=== PATIENT | female | born 1985 | race Caucasian/White ===

== ENCOUNTER 2024-02-16 18:34 | Emergency (ER) | payer BC, SELFPAY ==
[2024-02-16 18:43] VITALS: BP 142/81
--- NOTE | 2024-02-16 21:21 | ED.GENMED ---
History of Present Illness
General
Chief Complaint: Vascular Symptoms
Source: patient
Exam Limitations: none
Time Seen by Provider: 02/16/24 21:02
History of Present Illness
History of Present Illness:
38-year-old female presents complaining of right arm discomfort and swelling with associated numbness into the fingertips. Seen by family doctor earlier today and sent in for DVT rule out. She denies chest pain or shortness of breath. No known
injury. No other complaints at this time
Phy Exam
Physical Exam
Physical Exam:
General: Well-appearing female no acute respiratory distress
HEENT: Normocephalic atraumatic
Heart: Regular rate and rhythm no murmurs lungs: Clear no wheeze musculoskeletal exam: The right medial elbow is tender to the touch with mild soft tissue swelling. She has increased pain with resisted wrist extension. The neck has good range of
motion. She has good range of motion to the right shoulder.
Neurologic: Good sensation right hand. Subtle weakness noted upon ulnar strength testing with finger abduction. She has a mildly positive Tinel's of the cubital tunnel.
Vascular: 2+ radial pulse right wrist no edema
Course
Orders/Labs/Results
Orders:
Orders
02/16/24 18:46
Periph Venous Upr Ext Right US [US Periph Venous UPPER Ext RT] Urgent
Comment:
Reason For Exam: r/o dvt
Vital Signs
Initial and Last Documented VS:
Initial Vital Signs
Temp Pulse Resp BP Pulse Ox
99.0 F 94 19 142/81 98
02/16/24 18:43 02/16/24 18:43 02/16/24 18:43 02/16/24 18:43 02/16/24 18:43
Last Documented Vital Signs
Temp Pulse Resp BP Pulse Ox
99.0 F 94 19 142/81 98
02/16/24 18:43 02/16/24 18:43 02/16/24 18:43 02/16/24 18:43 02/16/24 18:43
MDM/Problems Addressed
Differential Diagnosis Includes:
Right arm pain. Consider tendinitis versus radiculopathy versus cubital tunnel versus DVT. Patient sent in by family doctor to evaluate for DVT. Ultrasound was performed of the right upper extremity which was negative for DVT. Patient reassured.
Recommended ibuprofen or anti-inflammatories stable for discharge with follow-up
*Critical Care Note
Total Time (30-74mins, 75-104mins- exclusive of procedures): Not Applicable
ED Attending Note
-
Portions of this chart may have been created with voice recognition software.� Occasional wrong word or��sound alike� substitutions may have occurred due to the inherent limitations of voice recognition software.
Discharge Plan
Departure
Patient Disposition: Home (Routine Discharge)
Date of Disposition: 02/16/24
Time of Disposition: 21:33
Patient with high blood pressure during this ER visit?: No
Discharge Problem:
Arm pain
Instructions: Radiculopathy (DC)
Activity Restrictions/Additional Instructions:
Use ibuprofen as needed for pain. Return for worsening symptoms otherwise follow-up with family doctor
Interventions
Interventions:
*Risk Screen - Suicide Last Done: 02/16/24 18:39
*General Assessment Last Done: 02/16/24 18:39
*Neglect/Abuse Screening Last Done: 02/16/24 18:39
*ED COVID-19 Vaccine History Last Done: 02/16/24 18:39
Discharge Date and Time
Print Language: GAMBIAN
== END 2024-02-16 21:37 | disposition home or self-care (01) ==
LOC: EMR 18:34
PROVIDERS: EMERGENCY PHYSICIAN Emergency Medicine; FAMILY PHYSICIAN Family Medicine
DX: M79.601 Pain in right arm (principal); R20.0 Anesthesia of skin; M79.89 Other specified soft tissue disorders; Z88.1 Allergy status to other antibiotic agents
CPT/HCPCS: 99284; 93971

== ENCOUNTER → 2025-02-28 09:58 | Outpatient (REF) | payer BC, SELFPAY | LOC: DHSLP 09:58 | PROVIDERS: ATTENDING PHYSICIAN Otolaryngology; FAMILY PHYSICIAN Family Medicine | DX: G47.33 Obstructive sleep apnea (adult) (pediatric) (principal); R06.83 Snoring | CPT/HCPCS: 95800 ==

== ENCOUNTER → 2025-06-13 21:45 | Outpatient (REF) | payer BC, SELFPAY | LOC: DHSLP 21:45 | PROVIDERS: ATTENDING PHYSICIAN Otolaryngology; FAMILY PHYSICIAN Family Medicine | DX: G47.33 Obstructive sleep apnea (adult) (pediatric) (principal); R06.83 Snoring | CPT/HCPCS: 95810 ==